=== PATIENT | female | born 1990 | race African-American/Black ===

== ENCOUNTER 2018-12-21 20:59 | Emergency (ER) | payer OTHER ==
[~2018-12-21] VITALS: Ht 170.2 cm; Wt 89.8 kg
[~2018-12-21 20:59] MED LIST: IBUPROFEN 600600 M1 PO; MACROBID 100 M100 M1 PO; NOHOMEMEDICATIONS; NORCO 5-325 TA1 EACH PO; PYRIDIUM200 MG PO; TRINATE TABLET1 TAB PO
[2018-12-21 21:23] LABS: URINE BILIRUBIN NEGATIVE (Negative); URINE BLOOD 1+ (Negative); URINE CLARITY CLEAR; URINE COLOR YELLOW; URINE GLUCOSE-RANDOM* NEGATIVE (Negative); URINE KETONES NEGATIVE (Negative); URINE LEUKOCYTES-REFLEX NEGATIVE (Negative); URINE NITRITE-REFLEX NEGATIVE (Negative); URINE PROTEIN (DIPSTICK) NEGATIVE (Negative); URINE SPECIFIC GRAVITY >= 1.030 (1.005-1.035); URINE UROBILINOGEN 0.2 E.U./dl (0.2-1.0)
[2018-12-21 21:31] LABS: BACTERIA-REFLEX None Seen /HPF (None Seen); CASTS None Seen /LPF (None Seen); CRYSTALS None Seen /LPF (None Seen); MUCUS 0-3 Light strn/LPF (None Seen); SQUAMOUS 0-3 Few /LPF (0-3); URINE RBC 0-2 Rare /HPF (0-2); URINE WBC-REFLEX None Seen /HPF (0-5)
[2018-12-21 22:15] VITALS: BP 120/87
== END 2018-12-21 22:18 | disposition home or self-care (01) ==
LOC: ER 20:59
PROVIDERS: Emergency Medicine; Nurse Practitioner
DX: N89.8 Other specified noninflammatory disorders of vagina (principal); R35.0 Frequency of micturition

== ENCOUNTER 2020-06-12 00:58 | Emergency (ER) | payer OTHER ==
[~2020-06-12] VITALS: Ht 172.7 cm; Wt 83.9 kg
[2020-06-12] MEDS ORDERED: METHOTREXA1 GM/40 M2 (01:08)
[2020-06-12] MEDS ORDERED: METRONIDAZOLE500 M4 (01:08)
[2020-06-12] MEDS ORDERED: NORCO 5-325 TA1 EAC2 PO (04:35)
[2020-06-12] MEDS ORDERED: NAPROSYN500 MG PO (04:40)
[2020-06-12 04:49] VITALS: BP 94/53
== END 2020-06-12 04:50 | disposition home or self-care (01) ==
LOC: ER 00:58
DX: O26.891 Other specified pregnancy related conditions, first trimester (principal); R10.30 Lower abdominal pain, unspecified; Z79.899 Other long term (current) drug therapy; Z3A.00 Weeks of gestation of pregnancy not specified